=== PATIENT | female | born 1990 | race Caucasian/White ===

== ENCOUNTER 2019-01-29 05:39 | Emergency (ER) | payer BC, OTHER ==
[2019-01-29] MEDS ORDERED: Sodium Chloride 0.9% 1000 ML 1,000 ML IV STA ×2 (06:19→07:20)
[2019-01-29] MEDS ORDERED: MORPHINE SULFATE 4 MG INJ IV ONE (06:19)
[2019-01-29] MEDS ORDERED: Zofran 4 MG/2 ML VIAL IV ONE (06:19)
[2019-01-29] MEDS ORDERED: Zofran 4 MG/2 ML VIAL ONE (06:25)
[2019-01-29] MEDS ORDERED: Sodium Chloride 0.9% 1000 ML 1,000 ML ONE ×2 (06:25→07:26)
[2019-01-29] MEDS ORDERED: MORPHINE SULFATE 4 MG INJ ONE (06:25)
--- NOTE | 2019-01-29 06:36 | ERPHSYRPT ---
- History of Present Illness Historian: patient Exam Limitations: no limitations ([place]) Patient Subjective Stated Complaint: pt states that she has been vomiting and had diarrhea for the past 11 hours, pt states that lower back hurts, pt states that she is having muscle cramps to legs, pt toook pepto x2 but vomited medication up, pt state that it dexter when urinating Triage Nursing Assessment: pt ambulated into the ER, pt c/o of N/V, pt is pale Timing/Duration: yesterday Activities at Onset: rest Quality: burning, cramping Abdominal Pain Onset Location: suprapubic Pain Radiation: back Severity of Pain-Max: moderate Severity of Pain-Current: moderate Modifying Factors: Improves With: vomiting Associated Symptoms: rash Hx Tetanus, Diphtheria Vaccination/Date Given: Yes (APPROX 6 YEARS AGO) Hx Influenza Vaccination/Date Given: No Hx Pneumococcal Vaccination/Date Given: No <BRANDO VELAZQUEZ - Last Filed: 01/29/19 06:47> <ROSE RUBIO - Last Filed: 01/29/19 08:18> - History of Present Illness Time Seen by Provider: 01/29/19 06:12 Physician History: 28 years old healthy female presented in the ER with chief complaint of multiple episodes of nonprojectile, nonbilious vomiting but no hematemesisfor almost 11 hours, sudden onset and is unable to hold anything down. It is also associated with multiple episodes of loose the diarrhea at the same time but generalized abdominal pain melena suprapubic area with some burning urination. Because of repeated vomiting and diarrhea she is complaining of low back pain as well. and son has similar symptoms started on same time which are improving. She denies any fever or chills. (BRANDO VELAZQUEZ) Allergies/Adverse Reactions: No Known Drug Allergies Allergy (Unverified 01/29/19 06:03) Home Medications: LORazepam [Lorazepam] 1 mg PO TID 01/29/19 [History] - Review of Systems Constitutional: Fatigue Eyes: No Symptoms Ears, Nose, & Throat: No Symptoms Respiratory: No Symptoms Cardiac: No Symptoms Abdominal/Gastrointestinal: Abdominal Pain, Nausea, Vomiting, Diarrhea Genitourinary Symptoms: Dysuria Musculoskeletal: Back Pain Skin: No Symptoms Neurological: No Symptoms Psychological: No Symptoms Endocrine: No Symptoms Hematologic/Lymphatic: No Symptoms Immunological/Allergic: No Symptoms <MARCUS,BRANDO - Last Filed: 01/29/19 06:47> - Past Medical History Pertinent Past Medical History: No - Past Surgical History Past Surgical History: Yes Female Surgical History: Section - Social History Smoking Status: Current every day smoker How long have you smoked: 8YRS Exposure to second hand smoke: Yes Drug Use: marijuana Patient Lives Alone: No - Female History Hx Last Menstrual Period: 01/05/19 Hx Now: No (unknown) <MARCUS,BRANDO - Last Filed: 01/29/19 06:47> - Physical Exam General Appearance: no apparent distress Eye Exam: eyes nml inspection Ears, Nose, Throat Exam: normal ENT inspection, pharynx normal Neck Exam: normal inspection, non-tender, supple, full range of motion Respiratory Exam: normal breath sounds, lungs clear Cardiovascular Exam: regular rate/rhythm, normal heart sounds, normal peripheral pulses Gastrointestinal/Abdomen Exam: soft, normal bowel sounds, tenderness (minimal suprapubic area), No distention, No guarding Back Exam: normal inspection, normal range of motion, No CVA tenderness Extremity Exam: normal inspection, normal range of motion, pelvis stable Neurologic Exam: alert, oriented x 3, cooperative Skin Exam: normal color, warm SpO2 Interpretation: normal SpO2: 95 O2 Delivery: Room Air <MARCUS,BRANDO - Last Filed: 01/29/19 06:47> - Nursing Vital Signs Nursing Vital Signs: Initial Vital Signs Temperature 97.7 F 01/29/19 05:43 Pulse Rate 107 H 01/29/19 05:43 Respiratory Rate 15 01/29/19 05:43 Blood Pressure 115/75 01/29/19 05:43 O2 Sat by Pulse Oximetry 95 01/29/19 05:43 Pain Scale Pain Intensity 4 - Course Nursing assessment & vital signs reviewed: Yes <MARCUSBRANDO - Last Filed: 01/29/19 06:47> Ordered Tests: Active Orders 24 hr Category Date Time Status IV Insertion STAT Care 01/29/19 06:19 Active CBC W DIFF Stat Lab 01/29/19 06:54 Completed CMP Stat Lab 01/29/19 06:54 Completed CULTURE,URINE Stat Lab 01/29/19 06:54 Received HCG QUALITATIVE,SERUM Stat Lab 01/29/19 06:54 Completed LIPASE Stat Lab 01/29/19 06:54 Completed [place] Screen Stat Lab 01/29/19 06:30 Completed UA W/RFX UR CULTURE Stat Lab 01/29/19 06:54 Completed Medication Summary Generic Name Dose Route Start Last Admin Trade Name Hugh PRN Reason Stop Dose Admin Sodium Chloride 1,000 mls @ 999 mls/hr 01/29/19 07:20 01/29/19 07:27 Sodium Chloride 0.9% 1000 Ml IV 01/29/19 08:20 999 mls/hr .Q1H1M STA Administration Discontinued Medications Generic Name Dose Route Start Last Admin Trade Name Freromana PRN Reason Stop Dose Admin Sodium Chloride 1,000 mls @ 999 mls/hr 01/29/19 06:19 01/29/19 07:30 Sodium Chloride 0.9% 1000 Ml IV 01/29/19 07:19 Infused .Q1H1M STA Infusion Sodium Chloride Confirm 01/29/19 06:25 Sodium Chloride 0.9% 1000 Ml Administered 01/29/19 06:26 Dose 1,000 mls @ ud .ROUTE .STK-MED ONE Sodium Chloride Confirm 01/29/19 07:26 Sodium Chloride 0.9% 1000 Ml Administered 01/29/19 07:27 Dose 1,000 mls @ ud .ROUTE .STK-MED ONE Morphine Sulfate 4 mg 01/29/19 06:19 01/29/19 06:30 Morphine Sulfate 4 Mg Inj IV 01/29/19 06:20 4 mg STAT ONE Administration Morphine Sulfate Confirm 01/29/19 06:25 Morphine Sulfate 4 Mg Inj Administered 01/29/19 06:26 Dose 4 mg .ROUTE .STK-MED ONE Ondansetron HCl 4 mg 01/29/19 06:19 01/29/19 06:32 Zofran 4 Mg/2 Ml Vial IV 01/29/19 06:20 4 mg STAT ONE Administration Ondansetron HCl Confirm 01/29/19 06:25 Zofran 4 Mg/2 Ml Vial Administered 01/29/19 06:26 Dose 4 mg .ROUTE .STK-MED ONE Lab/Rad Data: Laboratory Result Diagrams 01/29/19 06:54 01/29/19 06:54 Laboratory Results 01/29/19 01/29/19 01/29/19 Range/Units 07:30 06:54 06:54 WBC (4.0-10.5) K/mm3 RBC (4.1-5.4) M/mm3 Hgb (12.0-16.0) gm/dl Hct (35-47) % MCV (78-100) fl MCH (26-32) pg MCHC (32-36) g/dl RDW (11.5-14.0) % Plt Count (150-450) K/mm3 MPV (6-9.5) fl Gran % (36.0-66.0) % Eos # (Auto) (0-0.5) Absolute Lymphs (auto) (1.0-4.6) Absolute Monos (auto) (0.0-1.3) Lymphocytes % (24.0-44.0) % Monocytes % (0.0-12.0) % Eosinophils % (0.00-5.0) % Basophils % (0.0-0.4) % Absolute Granulocytes (1.4-6.9) Basophils # (0-0.4) Sodium (137-145) mmol/L Potassium (3.5-5.1) mmol/L Chloride (98-107) mmol/L Carbon Dioxide (22-30) mmol/L Anion Gap (5-15) MEQ/L BUN (7-17) mg/dL Creatinine (0.52-1.04) mg/dL Estimated GFR ML/MIN Glucose (74-106) mg/dL Calcium (8.4-10.2) mg/dL Total Bilirubin (0.2-1.3) mg/dL AST (14-36) U/L ALT (0-35) U/L Alkaline Phosphatase (38-126) U/L Serum Total Protein (6.3-8.2) g/dL Albumin (3.5-5.0) g/dL Lipase (23-300) U/L Serum , Qual NEGATIVE (Negative) Urine Color YANETH (YELLOW) Urine Appearance SLIGHTLY CLOUDY (CLEAR) Urine pH 5.0 (5-6) Ur Specific Clever 1.027 (1.005-1.025) Urine Protein 100 (Negative) Urine Ketones MODERATE (NEGATIVE) Urine Blood SMALL (0-5) Coy/ul Urine Nitrite NEGATIVE (NEGATIVE) Urine Bilirubin SMALL (NEGATIVE) Urine Urobilinogen 2 (0-1) mg/dL Ur Leukocyte Esterase NEGATIVE (NEGATIVE) Urine WBC (Auto) 3-5 (0-5) /HPF Urine RBC (Auto) 3-5 (0-2) /HPF U Hyaline Cast (Auto) 11-25 (0-2) /LPF U Epithel Cells (Auto) RARE (FEW) /HPF Urine Bacteria (Auto) RARE (NEGATIVE) /HPF Urine Mucus (Auto) MANY (NEGATIVE) /HPF Urine Culture Reflexed YES (NO) Urine Glucose NEGATIVE (NEGATIVE) mg/dL Monoscreen (Negative) Influenza Type A Ag NEGATIVE (NEGATIVE) Influenza Type B Ag NEGATIVE (NEGATIVE) RSV (PCR) NEGATIVE (Negative) Group A Strep Antibody NEGATIVE (NEGATIVE) Slides for Path Review 01/29/19 01/29/19 01/29/19 Range/Units 06:54 06:54 06:30 WBC 18.0 H (4.0-10.5) K/mm3 RBC 5.23 (4.1-5.4) M/mm3 Hgb 16.7 H (12.0-16.0) gm/dl Hct 48.1 H (35-47) % MCV 92.0 (78-100) fl MCH 31.9 (26-32) pg MCHC 34.7 (32-36) g/dl RDW 13.0 (11.5-14.0) % Plt Count 333 (150-450) K/mm3 MPV 10.6 H (6-9.5) fl Gran % 95.6 H (36.0-66.0) % Eos # (Auto) 0.06 (0-0.5) Absolute Lymphs (auto) 0.22 L (1.0-4.6) Absolute Monos (auto) 0.50 (0.0-1.3) Lymphocytes % 1.2 L (24.0-44.0) % Monocytes % 2.8 (0.0-12.0) % Eosinophils % 0.3 (0.00-5.0) % Basophils % 0.1 (0.0-0.4) % Absolute Granulocytes 17.16 H (1.4-6.9) Basophils # 0.01 (0-0.4) Sodium 143 (137-145) mmol/L Potassium 3.9 (3.5-5.1) mmol/L Chloride 109 H (98-107) mmol/L Carbon Dioxide 20 L (22-30) mmol/L Anion Gap 18.2 H (5-15) MEQ/L BUN 12 (7-17) mg/dL Creatinine 0.62 (0.52-1.04) mg/dL Estimated GFR > 60.0 ML/MIN Glucose 152 H (74-106) mg/dL Calcium 10.0 (8.4-10.2) mg/dL Total Bilirubin 0.70 (0.2-1.3) mg/dL AST 20 (14-36) U/L ALT 20 (0-35) U/L Alkaline Phosphatase 73 (38-126) U/L Serum Total Protein 8.9 H (6.3-8.2) g/dL Albumin 4.9 (3.5-5.0) g/dL Lipase 42 (23-300) U/L Serum , Qual (Negative) Urine Color (YELLOW) Urine Appearance (CLEAR) Urine pH (5-6) Ur Specific Clever (1.005-1.025) Urine Protein (Negative) Urine Ketones (NEGATIVE) Urine Blood (0-5) Coy/ul Urine Nitrite (NEGATIVE) Urine Bilirubin (NEGATIVE) Urine Urobilinogen (0-1) mg/dL Ur Leukocyte Esterase (NEGATIVE) Urine WBC (Auto) (0-5) /HPF Urine RBC (Auto) (0-2) /HPF U Hyaline Cast (Auto) (0-2) /LPF U Epithel Cells (Auto) (FEW) /HPF Urine Bacteria (Auto) (NEGATIVE) /HPF Urine Mucus (Auto) (NEGATIVE) /HPF Urine Culture Reflexed (NO) Urine Glucose (NEGATIVE) mg/dL Monoscreen NEGATIVE (Negative) Influenza Type A Ag (NEGATIVE) Influenza Type B Ag (NEGATIVE) RSV (PCR) (Negative) Group A Strep Antibody (NEGATIVE) Slides for Path Review YES <BRANDO VELAZQUEZ - Last Filed: 01/29/19 06:47> - Progress Progress: improved Counseled pt/family regarding: lab results, diagnosis, need for follow-up <ROSE RUBIO - Last Filed: 01/29/19 08:18> - Progress Progress Note: 01/29/19 06:47 work up is pending and care is transferred to Dr. Luevano at end of my shift 0700am (BRANDO VELAZQUEZ) 01/29/19 07:33 pt feeling better. pt re examined. no abd pain. (ROSE RUBIO) <BRANDO VELAZQUEZ - Last Filed: 01/29/19 06:47> - Departure Departure Disposition: Home Critical Care Time: No <ROSE RUBIO - Last Filed: 01/29/19 08:18> - Departure Clinical Impression: Vomiting, Diarrhea, Dehydration Condition: Stable Referrals: CLEO NUNN [Primary Care Provider] - Additional Instructions: drink plenty of clear liquids. return to ED if symptoms worsen Prescriptions: Ondansetron HCl [Zofran] 4 mg PO TID PRN #10 tablet PRN Reason: Nausea/Vomiting
[2019-01-29 06:56] LABS: Absolute Neutrophil Ct (ANC) 17.16 (1.4-6.9); BASOPHIL % 0.1 % (0.0-0.4); Basophil (Absolute #) 0.01 (0-0.4); Eosinophil % 0.3 % (0.00-5.0); Eosinophil (Absolute #) 0.06 (0-0.5); Hematocrit 48.1 % (35-47); Hemoglobin 16.7 gm/dl (12.0-16.0); Lymphocyte (Absolute #) 0.22 (1.0-4.6); Lymphocytes % 1.2 % (24.0-44.0); Mean Corpuscular Hemoglobin 31.9 pg (26-32); Mean Corpuscular Hgb Concent. 34.7 g/dl (32-36); Mean Platelet Volume 10.6 fl (6-9.5); Monocytes % 2.8 % (0.0-12.0); Neutrophil % 95.6 % (36.0-66.0); Platelet Count 333 K/mm3 (150-450); Red Blood Count 5.23 M/mm3 (4.1-5.4)
[2019-01-29 07:05] VITALS: PULSE 83; O2SAT 98
[2019-01-29 07:06] LABS: ALBUMIN 4.9 g/dL (3.5-5.0); ALKALINE PHOSPHATASE 73 U/L (38-126); ANION GAP 18.2 MEQ/L (5-15); BLOOD UREA NITROGEN 12 mg/dL (7-17); CHLORIDE 109 mmol/L (98-107); Carbon Dioxide 20 mmol/L (22-30); Creatinine 1 0.62 mg/dL (0.52-1.04); Glucose 152 mg/dL (74-106); LIPASE 42 U/L (23-300); Potassium 3.9 mmol/L (3.5-5.1); SGOT/AST 20 U/L (14-36); SGPT/ALT 20 U/L (0-35); SODIUM 143 mmol/L (137-145); Total Protein 8.9 g/dL (6.3-8.2)
[2019-01-29 07:13] LABS: Appearance SLIGHTLY CLOUDY (CLEAR); Bacteria RARE /HPF (NEGATIVE); Bilirubin SMALL (NEGATIVE); Blood SMALL Ery/ul (0-5); Epithelial Cells RARE /HPF (FEW); Glucose NEGATIVE (NEGATIVE); Ketones MODERATE (NEGATIVE); Leukocyte Esterase NEGATIVE (NEGATIVE); Mucus MANY /HPF (NEGATIVE); Nitrite NEGATIVE (NEGATIVE); Protein,Urine Dip 100 (Negative); Slide Review 1 YES; Specific Gravity 1.027 (1.005-1.025); Urobilinogen 2 mg/dL (0-1)
[2019-01-29 08:07] LABS: Group A Strep NEGATIVE (NEGATIVE); INFLUENZA A NEGATIVE (NEGATIVE); INFLUENZA B NEGATIVE (NEGATIVE); RESPIRATORY SYNCTIAL VIRUS NEGATIVE (Negative)
[2019-01-29 08:36] VITALS: BP 103/52
== END 2019-01-29 08:38 | disposition home or self-care (01) ==
LOC: ED 05:39
DX: R11.2 Nausea with vomiting, unspecified (principal); R19.7 Diarrhea, unspecified; E86.0 Dehydration; R10.9 Unspecified abdominal pain; R30.0 Dysuria
CPT/HCPCS: 36000; 36415; 80053; 81001; 81025; 83690; 85025; 86308; 87086; 87631; 87651; 96360; 96361; 96374; 96375; 99284; J2270; J2405